=== PATIENT | female | born 1990 | race Caucasian/White ===

== ENCOUNTER 2021-05-22 10:57 | Outpatient (CLI) | payer OTHER ==
[2021-05-22 11:28] LABS: EOSINOPHILS % (AUTO) 0.4 %; HGB - HEMOGLOBIN 13.3 g/dL (12.0-16.0); LYMPHOCYTES % (AUTO) 40.6 %; MEAN CORPUSCULAR HEMOGLOBIN 29.4 pg (27.0-31.0); MEAN CORPUSCULAR HGB CONC 32.4 g/dL (32.0-36.0); MEAN CORPUSCULAR VOLUME 90.7 fL (81.0-99.0); MEAN PLATELET VOLUME 12.5 fL (7.9-10.8); MONOCYTES # (AUTO) 0.5 10^3/uL (0.0-1.0); MONOCYTES % (AUTO) 9.6 %; NEUTROPHILS # (AUTO) 2.5 10^3/uL (1.5-6.6); NEUTROPHILS % (AUTO) 49.2 %; PLT - PLATELET COUNT 193 10^3/uL (130-450); RED BLOOD COUNT 4.52 10^6/uL (4.20-5.40); RED CELL DISTRIBUTION WIDTH 13.1 % (12.0-15.0)
== END 2021-05-22 10:58 | disposition home or self-care (01) ==
LOC: LAB 10:57
PROVIDERS: ATTEND Obstetrics & Gynecology
DX: Z01.812 Encounter for preprocedural laboratory examination (principal); Z30.2 Encounter for sterilization
CPT/HCPCS: 36415; 85025

== ENCOUNTER 2021-05-25 07:15 | Day surgery (SDC) | payer OTHER ==
[2021-05-25 07:45] LABS: HCG UR QUAL NEGATIVE
[2021-05-25] MEDS ORDERED: LACTATED RINGERS 1,000 ML IV ONE ×2 (07:46→10:14)
--- NOTE | 2021-05-25 08:22 | ANESTHESIA ---
Pre-Anesthesia VS, & Labs - Diagnosis desires sterilization - Procedure laparoscopic salpingectomy Vital Signs: Temp Pulse Resp BP Pulse Ox 36.3 C L 75 18 129/78 100 05/25/21 07:26 05/25/21 07:26 05/25/21 07:26 05/25/21 07:26 05/25/21 07:26 Height: 5 ft 11 in Weight (kg): 110 kg Body Mass Index: 33.8 BMI Classification: Obese - NPO >8 hours - Is Patient ?: No - Lab Results Lab results reviewed: Yes Home Medications and Allergies Home Medications: Ambulatory Orders No Known Home Medications 05/22/21 No Known Home Medications 05/22/21 Allergies/Adverse Reactions: Allergies Allergy/AdvReac Type Severity Reaction Status Date / Time No Known Drug Allergies Allergy Verified 05/19/21 11:28 Anes History & Medical History - Anesthetic History Anesthesia Complications: reports: No previous complications Family history of Anesthesia Complications: Denies Family history of Malignant Hyperthermia: Denies - Medical History Urinary: reports: Other Endocrine/Autoimmune: reports: HyPOthyroidism (hashimotos) History of Cancer?: No - Surgical History Other Past Surgical History: wisdom teeth extraction, office sedation Exam General: Alert, Oriented x3, Cooperative Dental: WNL Mouth Openin Fingerbreadth Neck Mobility: Normal Mallampati classification: II (tongue ring removed pre-op) Respiratory: Lungs clear, Normal breath sounds, No respiratory distress Cardiovascular: Regular rate Neurological: Normal speech Mental/Cognitive Status: Alert/Oriented X3, Normal for patient Cognitive Status: Within normal limits Plan Anesthesia Type: General Consent for Procedure(s) Verified and Reviewed: Yes Code Status: Attempt Resuscitation ASA classification: 2-Mild systemic disease Is this case an emergency?: No
[2021-05-25] MEDS ORDERED: ONDANSETRON 4 MG/2 ML VIAL IVP PRN (08:23)
[2021-05-25] MEDS ORDERED: ePHEDrine 50 MG/ML VIAL IVP PRN (08:23)
[2021-05-25] MEDS ORDERED: fentaNYL 100 MCG/2 ML VIAL IVP PRN (08:23)
[2021-05-25] MEDS ORDERED: NALOXONE 0.4 MG/ML VIAL IVP PRN (08:23)
[2021-05-25] MEDS ORDERED: MORPHINE 2 MG/ML CARPUJECT IVP PRN (08:23)
[2021-05-25] MEDS ORDERED: METOCLOPRAMIDE 10 MG/2 ML VIAL IVP PRN (08:23)
[2021-05-25] MEDS ORDERED: HYDROmorphone 0.5 MG/0.5 ML SYRINGE IVP PRN (08:23)
[2021-05-25] MEDS ORDERED: ATROPINE ABBOJECT 1 MG/10 ML SYRINGE IVP PRN (08:23)
[2021-05-25] MEDS ORDERED: MIDAZOLAM 2 MG/2 ML VIAL ONE (08:24)
[2021-05-25] MEDS ORDERED: DEXAMETHASONE 4 MG/ML VIAL ONE (08:27)
[2021-05-25] MEDS ORDERED: BUPIVACAINE 0.5%-EPI 1:200000 PF 30 ML VIAL ONE (08:27)
[2021-05-25] MEDS ORDERED: PROPOFOL 200 MG/20 ML VIAL IVP ONE (08:27)
[2021-05-25] MEDS ORDERED: ROCURONIUM 50 MG/5 ML VIAL ONE (08:30)
[2021-05-25] MEDS ORDERED: LACTATED RINGERS 1,000 ML IV SCH (09:00)
[2021-05-25] MEDS ORDERED: BUPIVACAINE 0.5%-EPI 1:200000 PF 30 ML VIAL SUBQ ONE ×2 (09:17)
[2021-05-25] MEDS ORDERED: HYDROmorphone 1 MG/ML CARPUJECT ONE (09:28)
[2021-05-25] MEDS ORDERED: KETOROLAC 30 MG/ML VIAL ONE (09:43)
[2021-05-25] MEDS ORDERED: GLYCOPYRROLATE 1 MG/5 ML VIAL ONE (09:59)
[2021-05-25] MEDS ORDERED: NEOSTIGMINE 1 MG/1 ML 10 ML MDV ONE (09:59)
--- NOTE | 2021-05-25 10:47 | OPERATIVE REPORT ---
Operative Report - General Procedure Date: 05/25/21 Planned Procedure: Laparoscopic bilateral salpingectomy Pre-Op Diagnosis: Desires sterilization Procedure Performed: Bilateral laparoscopic salpingectomy Post Op Diagnosis: Same - Procedure Note Primary Surgeon: Jennifer Suarez MD Secondary Surgeon: Isaac Parsons MD Anesthesia Technique: General ET tube Pathology: bilateral fallopian tubes to pathology IV Fluids (mL): 1,000 Estimated Blood Loss (mL): 5 Urine Output (mL): 25 Indications: Patient is a 30 yo G0 who desires sterilization with bilateral salpingectomy. Has signed [facility] consent forms more than 30 days prior to procedure. Confirms desire for sterilization again today, prior to the procedure. Findings: Normal appearing uterus, tubes, and ovaries Normal appendix and liver edge IUD strings visible at external os both before and after the procedure Complications: None - Other Other Information/Narrative: Risks benefits and alternatives of the procedure were reviewed. Consent was again confirmed. Patient was brought to the operating room and underwent general anesthesia. She was placed in dorsal lithotomy position with legs resting in yellowfin stirrups. SCDs were in place and activated. Patient was prepped and draped in the usual sterile fashion. Surgical timeout was performed. Bimanual exam was performed. Sterile speculum was placed. The cervix was visualized. A single toothed tenaculum was placed at the anterior cervical lip. A paracervical block was performed using 20 cc of 0.25% marcaine with epinephrine injected at 4:00 and 8:00 immediately lateral to portio of cervix. Uterus sounded to 6.5 cm. IUD strings were noted. The Humi uterine manipulator was placed. Both the tenaculum and the speculum were removed. The base of the umbilicus was anesthetized with intradermal injection of 0.25% Marcaine. A 5 mm skin incision was made with a scalpel. A 5 mm blunt trocar was inserted under direct visualization using [email or web address]. Once the port was confirmed to be placed intraperitoneally, the abdomen was insufflated to 15 mmHg with CO2 gas Exploration of the abdomen and pelvis was confirmed that no injury was sustained with placement of the trocar. Two additional 5 mm ports were placed in the right and left lower quadrants, taking care to avoid the epigastric arteries, while under direct visualization via laparoscopic guidance. The abdomen was explored with the laparoscope, with findings as noted. The left fallopian tube was grasped and elevated at the fimbriated end. The underlying mesosalpinx was sealed and resected to the insertion point on the uterine cornua using the Ligasure device. The tube was then sealed and transected at the insertion point at the cornua. The tube was removed from the pelvis through the lateral port. The procedure was repeated on the right side. Good hemostasis was noted. The abdomen was partially desufflated. Pedicles were observed under decreased pressure and good hemostasis was again confirmed. Abdomen was then completely desufflated. All instruments were removed from the abdomen. Skin was closed with interrupted subcuticular stitches using 4-0 Monocryl. Dermabond was applied over the suture sites. The Humi manipulator was removed from the uterus. IUD strings were noted after removal of the manipulator. Bimanual exam was performed and shaft of IUD was not palpable in the cervix. Again, good hemostasis was noted. The final sponge needle and instrument counts were correct at completion of the procedure patient was awakened taken to the postanesthesia care unit in stable condition. Dr. Parsons assisted with retraction and assistance with laparoscope.
[2021-05-25 11:37] VITALS: BP 119/69
--- NOTE | 2021-05-25 12:00 | ANESTHESIA POST OP EVALUATION ---
Anesthesia Post Eval - Post Anesthesia Eval Vitals: Last Vital Signs Temp 36.5 C 05/25/21 11:37 Pulse 49 L 05/25/21 11:37 Resp 13 05/25/21 11:37 BP 119/69 05/25/21 11:37 Pulse Ox 97 05/25/21 11:37 CV Function Including HR & BP: Stable Pain Control: Satisfactory Nausea & Vomiting: Negative Mental Status: Baseline Respiratory Status: Airway Patent Hydration Status: Satisfactory Anesthesia Complications: None
== END 2021-05-25 07:16 | disposition home or self-care (01) ==
LOC: SDS 07:15
PROVIDERS: ATTEND Obstetrics & Gynecology
PROC: 0UT74ZZ Resection of Bilateral Fallopian Tubes, Percutaneous Endoscopic Approach (ICD-10-PCS; principal; 2021-05-25 08:30)
DX: Z30.2 Encounter for sterilization (principal)
CPT/HCPCS: 58661; 81025; J1170; J7120

== ENCOUNTER 2021-08-16 08:00 | Outpatient (CLI) | payer OTHER | END 2021-08-16 23:59 | disposition home or self-care (01) | LOC: LAB.N 08:00 | PROVIDERS: ATTEND Physician Assistant Medical | DX: U07.1 COVID-19 (principal) ==